=== PATIENT | female | born 1935 | race Caucasian/White ===

== ENCOUNTER 2016-05-11 11:47 | Inpatient (IN) | payer OTHER ==
[~2016-05-11] VITALS: Ht 162.6 cm; Wt 67.9 kg
--- NOTE | ~2016-05-11 | HC ---
[facility] [place] [address] CONSULTATION Name: DEWAYNE KAUFMAN Room #: 202-P [facility] IN M.R.#: [id number] Admission: 05/11/16 Attend Phys: River Serna MD Discharge: Date of : 33 Report #: [id number] THIS REPORT FOR: //name// CC: Guido Serna REASON FOR CONSULTATION: Pacemaker, AV node ablation. HISTORY OF PRESENT ILLNESS: The patient is an 80-year-old with a history of atrial fibrillation status post CABG, Coffman-Maze procedure, left atrial appendage removal, who presented to the hospital with AFib with rapid ventricular response. An attempt at cardioversion failed to maintain sinus rhythm. She reports that she has problems with exertional dyspnea when she walks upstairs or . She reports she is not very active. She denies any PND or orthopnea. She denies presyncope or syncope. REVIEW OF SYSTEMS: Twelve point review of systems was performed and was negative other than what I mentioned above. PAST MEDICAL HISTORY: 1. CAD status post CABG. 2. Congestive heart failure. 3. Atrial fibrillation. 4. Coffman-Maze procedure. 5. Left atrial appendage exclusion. 6. Hypothyroidism. 7. Hyponatremia. 8. Hyperkalemia. 9. Iron deficiency anemia. 10. Esophageal dilatation. 11. Neurogenic bladder. 12. Sigmoid diverticulosis and hiatal hernia. 13. Chronic acute renal insufficiency. 14. Recurrent UTI. SOCIAL HISTORY: No tobacco. FAMILY HISTORY: Noncontributory. ALLERGIES: Include NITROFURANTOIN and SULFA. PHYSICAL EXAMINATION: VITAL SIGNS: Temperature is 36.7, pulse 108, respiration 17, blood pressure 116/70, sats 95%. GENERAL: She is in no acute distress. HEENT: Oropharynx is clear. NECK: Supple, no thyromegaly. [facility] [address] [place] [address] CONSULTATION Name: DEWAYNE KAUFMAN Room #: 202-P [facility] IN [facility]#: [id number] Admission: 05/11/16 Attend Phys: River Serna MD Discharge: Date of : 33 Report #: [id number] CARDIOVASCULAR: Regular rate and rhythm with no murmurs, rubs, gallops. LUNGS: Clear to auscultation bilaterally. ABDOMEN: Soft, nontender, nondistended with no hepatosplenomegaly. EXTREMITIES: There is no clubbing, cyanosis, edema. NEUROLOGIC: Cranial nerves 2-12 are intact. Her chest x-ray shows no acute process. She has an acute nondisplaced distal tibial lateral malleolar fracture noted. LABORATORY DATA: White count is 11.1, hemoglobin 11.5, platelets 193. Coags: INR 1.2. Chemistry: Potassium is 3.9, creatinine 1.9. Urine is positive for leukocyte esterase. ASSESSMENT AND PLAN: In summary, the patient is an 80-year-old with history of atrial fibrillation. She has failed a repeat attempt at cardioversion. She is intolerant of multiple medications and has multiple side effects. We have therefore discussed undergoing a biventricular pacemaker implantation given her decreased ejection fraction and class 2-3 heart failure symptoms. We also discussed undergoing AV node ablation. I will keep her n.p.o. after midnight. If I have a cancelation tomorrow, we can perhaps do it tomorrow. However, I think more likely this will have to be done on or Wednesday. We will continue to follow. <ELECTRONICALLY SIGNED> By: Huber Todd MD 05/14/16 1119 1253 1403 Huber Todd MD /nt
--- NOTE | ~2016-05-11 | CATHLAB ---
[facility] [place] [address] INVASIVE PROCEDURE REPORT Name: DEWAYNE KAUFMAN Room #: 447-P [facility] IN .R.#: [id number] Admission: 05/11/16 Attend Phys: River Serna MD Discharge: Date of : 33 Date of Service: 05/12/16816 Report #: [id number] THIS REPORT FOR: //name// CC: Guido Serna PROCEDURE: Cardioversion. INDICATION: Atrial fibrillation. DESCRIPTION OF PROCEDURE: Full written and informed consent was obtained. The patient was sedated with intravenous Versed and fentanyl; 50 biphasic joules were applied to the chest with prompt conversion of atrial fibrillation to sinus rhythm. She remained in hemodynamically, electrically and neurologically stable condition following the procedure and was transported back to her hospital room. <ELECTRONICALLY SIGNED> By: Kristian Loco MD, FACC 05/13/1636 6 2 Kristian Loco MD, FACC /nt
--- NOTE | ~2016-05-11 | TEE ---
[facility] [address] [place] [address] TRANSESOPHAGEAL ECHOCARDIOGRAM Name: DEWAYNE KAUFMAN Room #: 447-P [facility] IN [facility]#: [id number] Admission: 05/11/16 Attend Phys: River Serna MD Discharge: Date of : 33 Date of Service: 05/12/16 0846 Report #: [id number] THIS REPORT FOR: //name// APPROVED REPORT EXAM: Transesophageal echocardiogram with color flow Doppler Patient Location: CVL Blood Pressure: 99/56mmHg Other Information Study Quality: Good Indications Atrial Fibrillation Cardioversion Procedure After obtaining informed consent, patient underwent transesophageal echo in the [employer]. Type of Sedation : Conscious Sedation Sedation was administered by Monica Tillman RN, Zuleima Moreno RN. Sedation was achieved with 3mg Versed, 50mcg Fentanyl intravenously. Transesophageal probe was inserted and advanced into esophagus without difficulty by Kristian Loco MD. The ARSH was performed without complications. Throughout the procedure, the blood pressure, pulse oximetry, cardiac rhythm, and rate were monitored. The patient tolerated the procedure without adverse effects. Recovery from conscious sedation was uneventful and vital signs were stable. Left Ventricle Moderate left ventricular dysfunction LVEF is 35% Right Ventricle The right ventricular systolic function is normal. Atria Left atrium is dilated. Left atrial appendage previously amputated and surgically absent. No clots or masses in left atrium. Interatrial septum is intact without evidence of ASD or PFO. Right atrium is dilated. [facility] [address] [place] [address] TRANSESOPHAGEAL ECHOCARDIOGRAM Name: DEWAYNE KAUFMAN Room #: 447-P [facility] IN .R.#: [id number] Admission: 05/11/16 Attend Phys: River Serna MD Discharge: Date of : 33 Date of Service: 05/12/1646 Report #: [id number] Aortic Valve Aortic valve leaflets are mildly thickened and calcified. No aortic regurgitation is present. No stenosis Mitral Valve The mitral valve is mildly thickened. Mild mitral annular calcification. Moderate mitral regurgitation. Tricuspid Valve The tricuspid valve is normal in structure. Mild tricuspid regurgitation. Great Vessels Mild atherosclerotic plaquing is present in the aorta Pericardium No pericardial effusion <Conclusion> Moderate left ventricular dysfunction. LVEF 35%. Discordant septal motion Right and left atrium are dilated. Left atrial appendage previously amputated and surgically absent. No clots or masses in left atrium. Aortic valve leaflets are mildly thickened and calcified. No stenosis or insufficiency The mitral valve is mildly thickened, mild annular calcification. Moderate mitral regurgitation. Mild atherosclerotic plaquing is present in the aorta. No pericardial effusion <ELECTRONICALLY SIGNED> By: Kristian Loco MD, [facility] 05/12/1646 0846 Kristian Loco MD, FACC /INF
--- NOTE | ~2016-05-11 | P ---
[facility] [place] [address] PROCEDURE REPORT Name: DEWAYNE KAUFMAN Room #: 202-P [facility] IN M.R.#: [id number] Admission: 05/11/16 Attend Phys: River Serna MD Discharge: Date of : 33 Report #: [id number] THIS REPORT FOR: //name// CC: Guido Serna PROCEDURE: Bi-V pacemaker implant with AV node ablation on the patient. BRIEF HISTORY: The patient is an 80-year-old female with history of recurrent atrial fibrillation who was admitted with atrial fibrillation with RVR. She underwent attempt at cardioversion, which was unsuccessful maintaining sinus rhythm despite amiodarone. She has multiple drug intolerances and therefore she has been for a Bi-V pacemaker implantation and given her decreased ejection fraction of 35% and class 2-3 heart failure symptoms. ANESTHESIA: The patient underwent MAC anesthesia with no anesthesia related complications. PROCEDURE IN DETAIL: The patient underwent informed consent. We discussed the details of the procedure including the risks, which include but not limited to bleeding, infection, vascular damage, cardiac perforation, pneumothorax. She understood these risks and is willing to proceed. As such, she is brought to the EP laboratory in a fasting and sedated state and prepped and draped in a sterile fashion and receiving IV vancomycin prior to the procedure, a venogram was performed showing patency of left axillary vein. Next, 20 mL of lidocaine was injected below the level of left clavicle. Incision was made, pocket was created over the prepectoral fascia and access was obtained twice the left axillary vein using the extrathoracic approach. She is positioned using the modified Seldinger technique. Under fluoroscopic guidance, a lead was positioned in the right ventricular apex with adequate pacing and sensing thresholds and we sutured the prepectoral fascia. Next guide sheath was placed into the right atrium and we obtained a coronary access with ease. Next, there was evidence of a posterior lateral branch and middle cardiac vein. This sheath seemed to subselect this middle cardiac vein some initially placed the lead here, which had adequate pacing and sensing thresholds, but the lead moved position once I split the sheath. Next, another guide sheath was positioned and I decided to place the lead into the posterior lateral branch. We were able to get the lead here and there was adequate pacing and sensing thresholds. The sheath was split. The lead did not move this time and the lead was sutured to the prepectoral fascia, the pacemaker was connected to the lead and lead was found to be functioning normally. We did capped the atrial lead port. The pocket was irrigated with vancomycin and the pocket was closed in 3 layers using 2-0 for the deep layer, 3-0 for the mid layer and 4-0 for the subcuticular layer. Surgical glue was placed to the outer skin layer. Next, the right groin was prepped and obtained access to the right femoral vein using the modified Seldinger technique. I placed a SR0 sheath into the right atrium and 8 mm ablation catheter into the right atrium as well. We then therefore we then [address] [address] PROCEDURE REPORT Name: DEWAYNE KAUFMAN Room #: 202-P [facility] IN .#: [id number] Admission: 05/11/16 Attend Phys: River Serna MD Discharge: Date of : 33 Report #: [id number] performed ablation. We had some difficulty obtaining heart block, but then when I finally pulled back to a more atrial position at the level of the slow pathway and moved my way up, we eventually had slowing of the rate and eventual heart block with an underlying rhythm at around 45 beats per minute, we monitored for a period of 20 minutes and there is no return of conduction. The sheath was pulled. Hemostasis was obtained. The patient awoke neurologically and hemodynamically intact with no complications and no significant bleeding. The implanted Bi-V pacemaker is a [employer], model number [id number], serial number [id number]. RV lead was a [employer] model number 2088TC, 58 cm, serial number [id number] with a pacing, with an R-wave of 2.2 millivolts, pacing impedance of 590 ohms, the pacing threshold 1.25 volts at 0.5 milliseconds. The LV lead was a [employer] model number 1458Q, 86 cm, serial number [id number]. This lead demonstrated an impedance of 710 ohms, pacing threshold 1.25 volts at 0.5 milliseconds, we utilized the vector 7 pacing configuration, which is M3 to P4, which resulted in the best threshold and best narrowing of the QRS complex, the device was programmed to the VVIR 90-120 mode. CONCLUSIONS: 1. Successful Bi-V pacemaker implantation. 2. Satisfactory right ventricular and left ventricular pacing and sensing thresholds. 3. Successful AV node ablation. <ELECTRONICALLY SIGNED> By: Huber Todd MD 05/15/16 1423 1027 1129 Huber Todd MD /nt
--- NOTE | ~2016-05-11 | EKG ---
[address] [address] ELECTROCARDIOGRAM REPORT Name: MANDEEP,DEWAYNE Horn Room #: [facility].#: [id number] Admission: Attend Phys: Discharge: Date of : 33 Report #: [id number] THIS REPORT FOR: //name// [facility] ED Test Date: 2016-05-11 Test Time: 13:12:26 Pat Name: DEWAYNE KAUFMAN Department: Room: Gender: F Dice Person: MZOOK : 1935 Requested By: Paulo Heath Order Number: [id number] MD: Huber Todd Measurements Intervals [place] Rate: 124 P: LA: QRS: -35 QRSD: 137 T: 137 QT: 351 QTc: 505 Interpretive Statements Atrial fibrillation Left bundle branch block No previous ECG available for comparison Electronically Signed On 05-11-2016 13:20:22 HEALTH TECH by Huber Todd [email or web address] <ELECTRONICALLY SIGNED> By: Huber Todd MD 05/11/16 1320 1312 1312 Huber Todd MD /EPI
--- NOTE | ~2016-05-11 | HC ---
[facility] [place] [address] CONSULTATION Name: DEWAYNE KAUFMAN Room #: 202-P [facility] IN M.R.#: [id number] Admission: 05/11/16 Attend Phys: River Serna MD Discharge: 05/15/16 Date of : 33 Report #: [id number] THIS REPORT FOR: //name// CC: Guido Serna DICTATED BY: Cr BALDWIN DATE OF SERVICE: 05/12/2016 DICTATED BY: Shahid Hobbs, nurse practitioner with [facility]. PATIENT LOCATION: The patient at the time was in room 447, currently in [address] [place] [address]. REASON FOR CONSULTATION: Right ankle pain post fall. HISTORY OF PRESENT ILLNESS: The patient is an 80-year-old female who came to the emergency room after having a fall early in the morning. The patient got up to use the restroom when she fell and landed on her left side. She denied losing consciousness. She did, however, state she heard a pop in her leg. She then had pain, but was able to weightbear. She had so much pain that she had to crawl back into her bed and fell back asleep. When she woke up later in the morning, her pain was more severe. She called her daughter at 06:00 in the morning, who eventually called an ambulance to bring her to the hospital. In the emergency room, an x-ray was obtained, demonstrating a nondisplaced distal fibular lateral malleolar fracture. In addition, her EKG showed atrial fibrillation, left bundle branch block. The patient was started on the Cardizem drip at the time. She was then transferred to the fourth floor where I saw her. At the time that I saw her, she was in no pain and was resting comfortably in bed. She had been placed in a splint by the Emergency Room doctors. She had very minor swelling, pain and had no neurovascular deficiencies. PAST MEDICAL HISTORY: Includes hypothyroidism, partial hysterectomy, hyponatremia, hypokalemia, CHF, AFib, iron-deficiency anemia, dyslipidemia, sigmoid diverticulosis and recurrent UTI. PAST SURGICAL HISTORY: Past medical surgeries include appendectomy, cardiac cath, CABG and echo. SOCIAL HISTORY: The patient denies any recreational drug use, tobacco use or alcohol use. PHYSICAL EXAMINATION: EXTREMITIES: Assessment of right lower extremity demonstrated she had no swelling noted about the ankle. A +2 dorsal pedis, -3 seconds cap refill. No [facility] [address] [place] [address] CONSULTATION Name: DEWAYNE KAUFMAN Room #: 202-P [facility] IN .R.#: [id number] Admission: 05/11/16 Attend Phys: River Serna MD Discharge: 05/15/16 Date of : 33 Report #: [id number] pain to palpation of the right knee. Full range of motion of the right knee and right hip. Skin was dry and intact. Mild tenderness to palpation of lateral malleolus. Full range of motion of hip. DIAGNOSTIC DATA: Radiology impression of right tib-fib showed acute nondisplaced distal fibular lateral malleolar fracture. IMPRESSION: Acute nondisplaced distal fibular lateral malleolar fracture. PLAN: We will obtain 3 views of the right ankle to verify there is no additional injury. We will place the patient on a boot and have her be weightbearing as tolerated on the boot, as the fibular bone is nonweightbearing. She will continue to keep the leg elevated and iced. The patient is to follow up with us in our office in one week once she is discharged. At that time, we will do an x-ray to assess the fracture. The patient is scheduled for cardioversion later today. Thank you for this consult. <ELECTRONICALLY SIGNED> By: Leland Aquino MD 05/19/16 0721 1028 1108 Leland Aquino MD /nt
[~2016-05-11 11:47] MED LIST: ASPIRIN EC81 M1 PO; BISACODYL SUPP10 MG RECTAL; CARAFATE 1 GM TA1 G1 PO; CIPRO250 M1 PO; CIPROFLOXACIN500 M1 PO; COLACE100 MG PO; COZAAR 25 MG TA25 M1 PO; CRANBERRY500 MG PO; DEMECLOCYCLINE PO; ENOXAPARIN30 MG/0.1 SUBQ; FUROSEMIDE 40 M40 M1 PO; HALCION0.25 MG PO; HYDROCODONE-APA1 TA1 PO; KEFLEX500 M1 PO; KEFLEX500 MG PO; KLOR-CON 1010 MEQ PO; LEVOXYL50 MCG PO; LEVOXYL75 MCG PO; LOPRESSOR25 PO; LOPRESSOR50 PO; MAG-AL PLUS SUS30 ML PO; METOPROLOL SUCC25 M1 PO; NORCO 5-325 TA1 EACH PO; ONDANSETRON HCL4 M2 PO; PACERONE 200 M200 M1 PO; PEPCID20 MG PO; PERCOCET 5-3251 EACH PO; PRADAXA150 MG PO; PRADAXA75 MG PO; PRILOSEC 20 MG20 MG PO; PROTONIX40 M1 PO; PYRIDIUM100 M1 PO; TOPROL XL50 MG PO; TORSEMIDE20 MG PO; TRAZODONE HCL50 MG PO; TYLENOL325 MG PO; VENOFER20 MG/ML IV
[2016-05-11] MEDS ORDERED: LASIX 40 MG TAB40 M2 PO (11:58)
[2016-05-11 13:48] LABS: HEMATOCRIT 37.3 % (37.0-47.0); HEMOGLOBIN 12.4 gm/dL (12.0-15.0); MCH 30.3 pg (26.0-34.0); MCHC 33.2 g/dL (28.0-37.0); MCV 91.1 fL (80.0-100.0); PLATELET COUNT 223 thou/uL (150-400); RDW 13.9 % (10.5-14.5); WBC 13.4 thou/uL (4.0-11.0)
[2016-05-11 13:49] LABS: MANUAL DIFF YES
[2016-05-11 13:55] LABS: CALCIUM 8.7 mg/dL (8.5-10.1); CREATININE 1.9 mg/dL (0.6-1.3); POTASSIUM 3.6 mmol/L (3.5-5.1)
[2016-05-11 14:03] LABS: INR 1.2; PROTIME 12.7 Seconds (9.3-11.4)
[2016-05-11 14:09] LABS: ABSOLUTE NEUTROPHILS 12.5 thou/uL (1.4-8.2); POIKILOCYTOSIS SLIGHT; TOTAL CELL COUNT 100
[2016-05-11 15:13] LABS: URINE BILIRUBIN NEGATIVE (Negative); URINE BLOOD 3+ (Negative); URINE COLOR YELLOW; URINE GLUCOSE-RANDOM* NEGATIVE (Negative); URINE KETONES NEGATIVE (Negative); URINE LEUKOCYTES-REFLEX 2+ (Negative); URINE PROTEIN (DIPSTICK) 1+ (Negative); URINE SPECIFIC GRAVITY 1.015 (1.003-1.035); URINE UROBILINOGEN 0.2 E.U./dl (0.2-1.0)
[2016-05-11 15:23] LABS: CASTS None Seen /LPF (None Seen); SQUAMOUS 0-3 Few /LPF (0-3)
[2016-05-11 15:24] LABS: CRYSTALS None Seen /LPF (None Seen); URINE RBC 0-2 Rare /HPF (0-2); URINE WBC-REFLEX >25 Many /HPF (0-5)
[2016-05-11 20:19] LABS: NT-PRO BRAIN NAT PEPTIDE 27540 pg/mL (<300); TROPONIN-I < 0.04 ng/mL (<0.04-0.07)
[2016-05-12 02:17] LABS: HEMATOCRIT 34.3 % (37.0-47.0); HEMOGLOBIN 11.5 gm/dL (12.0-15.0); MCH 30.8 pg (26.0-34.0); MCHC 33.6 g/dL (28.0-37.0); MCV 91.8 fL (80.0-100.0); RBC 3.74 mil/uL (4.20-5.00); WBC 11.1 thou/uL (4.0-11.0)
[2016-05-12 02:23] LABS: CALCIUM 8.2 mg/dL (8.5-10.1); CREATININE 1.9 mg/dL (0.6-1.3); POTASSIUM 3.9 mmol/L (3.5-5.1)
[2016-05-13 06:14] LABS: HEMATOCRIT 33.9 % (37.0-47.0); HEMOGLOBIN 11.4 gm/dL (12.0-15.0); MCH 30.5 pg (26.0-34.0); MCHC 33.6 g/dL (28.0-37.0); RBC 3.73 mil/uL (4.20-5.00); RDW 14.2 % (10.5-14.5)
[2016-05-13 06:26] LABS: CALCIUM 8.4 mg/dL (8.5-10.1); CREATININE 1.8 mg/dL (0.6-1.3); POTASSIUM 3.8 mmol/L (3.5-5.1)
[2016-05-15 03:43] LABS: BASOPHILS 0.4 % (0.0-2.0); EOSINOPHILS 0.9 % (0.0-3.0); HEMATOCRIT 33.9 % (37.0-47.0); HEMOGLOBIN 11.2 gm/dL (12.0-15.0); LYMPHOCYTES 6.1 % (24.0-44.0); MCH 30.7 pg (26.0-34.0); MCHC 33.2 g/dL (28.0-37.0); MCV 92.4 fL (80.0-100.0); MONOCYTES 9.8 % (1.0-8.0); POLYS 82.8 % (36.0-66.0); RBC 3.67 mil/uL (4.20-5.00); RDW 14.8 % (10.5-14.5); WBC 11.2 thou/uL (4.0-11.0)
[2016-05-15 03:44] LABS: MANUAL DIFF NO
[2016-05-15 03:54] LABS: CALCIUM 8.3 mg/dL (8.5-10.1); CREATININE 1.6 mg/dL (0.6-1.3); POTASSIUM 3.6 mmol/L (3.5-5.1)
[2016-05-15 06:15] LABS: PLATELET COUNT 211 thou/uL (150-400)
[2016-05-15] MEDS ORDERED: BAYER CHEWABLE81 MG PO (11:17)
[2016-05-15] MEDS ORDERED: NORCO 5-325 TA1 EACH PO (11:17)
== END 2016-05-15 14:39 | DRG 853 ==
LOC: ER 11:47 → EROBS 14:32 → 4S 14:32 → 2N 05-13 15:44
PROVIDERS: Emergency Medicine; Internal Medicine; Internal Medicine Cardiovascular Disease; Internal Medicine Geriatric Medicine; Nurse Practitioner
DX: A41.9 Sepsis, unspecified organism (principal); I50.43 Acute on chronic combined systolic (congestive) and diastolic (congestive) heart failure; N17.9 Acute kidney failure, unspecified; E87.1 Hypo-osmolality and hyponatremia; N39.0 Urinary tract infection, site not specified; I13.0 Hypertensive heart and chronic kidney disease with heart failure and stage 1 through stage 4 chronic kidney disease, or unspecified chronic kidney disease; D68.59 Other primary thrombophilia; I44.2 Atrioventricular block, complete; I48.91 Unspecified atrial fibrillation; S82.409A Unspecified fracture of shaft of unspecified fibula, initial encounter for closed fracture; S82.66XA Nondisplaced fracture of lateral malleolus of unspecified fibula, initial encounter for closed fracture; I25.5 Ischemic cardiomyopathy; N18.9 Chronic kidney disease, unspecified; E78.5 Hyperlipidemia, unspecified; E03.9 Hypothyroidism, unspecified; K57.30 Diverticulosis of large intestine without perforation or abscess without bleeding; D72.829 Elevated white blood cell count, unspecified; I25.10 Atherosclerotic heart disease of native coronary artery without angina pectoris; S82.899A Other fracture of unspecified lower leg, initial encounter for closed fracture; Z90.710 Acquired absence of both cervix and uterus; Z79.899 Other long term (current) drug therapy; Z79.82 Long term (current) use of aspirin; Z90.49 Acquired absence of other specified parts of digestive tract; Z95.1 Presence of aortocoronary bypass graft; Z88.8 Allergy status to other drugs, medicaments and biological substances; Z88.2 Allergy status to sulfonamides
CPT/HCPCS: 10081; 10100; 62110; 62900; 70005